=== PATIENT | female | born 1970 | race Caucasian/White ===

== ENCOUNTER 2020-05-01 17:38 | Observation (INO) | payer OTHER ==
[~2020-05-01] VITALS: Ht 160 cm; Wt 57.7 kg
--- NOTE | ~2020-05-01 | TST ---
[place] [address] TREADMILL STRESS TEST Name: MINNIE DILLON Room: [address] M.R.#: [id number] Admission: 05/01/20 Attend Phys: Brooks Gee, Discharge: 05/02/20 Date of : 68 Date of Service: 05/02/20 1349 Report #: [id number] THIS REPORT FOR: cc: [facility] - Clinic physician unknown [facility] - Clinic physician unknown Don Daniel MD [facility] ~ CC: Brooks SPRAGUE unknown DATE OF SERVICE: 05/02/2020 PROCEDURE: Standard Osmin protocol exercise stress test. INDICATION: Chest discomfort and bradycardia. Testing to evaluate for chronotropic competence. DESCRIPTION OF PROCEDURE: The patient exercised per standard Osmin protocol for a total of 6 minutes and 7 seconds. The resting blood pressure was 132/81 mmHg with a resting pulse rate of 37 beats per minute. At peak exercise, the blood pressure was 142/91 mmHg with a peak stress heart rate of 103 beats per minute. In recovery, the blood pressure was 136/84 mmHg with a recovery heart rate of 45 beats per minute. The patient had chest discomfort throughout the exercise stress test. There were no EKG changes concordant with this. The baseline 12-lead EKG shows sinus bradycardia without significant ST segment or T-wave abnormality. EKGs obtained during and post-exercise show sinus rhythm and sinus tachycardia with no significant ST segment or T-wave changes when compared to baseline. Recovery EKGs were unremarkable. FINDINGS: 1. The patient failed to achieve target heart rate, only reaching 60% of maximum predicted heart rate. 2. This stress test shows no evidence of ischemia by EKG criteria at level of stress achieved. 3. The patient had some chronotropic competence with an increase in her heart rate to 103 beats per minute with activity. By: 1349 57 Don Daniel MD, FACC /nt
[2020-05-01 17:53] VITALS: BP 101/59
[2020-05-01 17:55] LABS: ABSOLUTE BASOPHILS 0.1 thou/uL (0.0-0.2); ABSOLUTE EOSINOPHILS 0.2 thou/uL (0.0-0.7); ABSOLUTE MONOCYTES 0.6 thou/uL (0.0-1.2); ABSOLUTE NEUTROPHILS 3.8 thou/uL (1.6-8.1); BASOPHILS 1.6 %; EOSINOPHILS 2.3 %; HEMATOCRIT 37.3 % (37.0-47.0); HEMOGLOBIN 12.9 gm/dL (12.0-15.0); LYMPHOCYTES 30.5 %; MCH 29.2 pg (26.0-34.0); MCHC 34.5 g/dL (28.0-37.0); MCV 84.5 fL (80.0-100.0); MONOCYTES 8.6 %; MPV 7.7 fl. (7.2-11.1); NUCLEATED RBCS 0 /100WBC; PLATELET COUNT* 292 thou/uL (150-400); RBC 4.41 mil/uL (4.20-5.00); RDW-CV 15.9 % (10.5-14.5); WBC 6.6 thou/uL (4.0-11.0)
[2020-05-01 18:03] LABS: CALCIUM 8.7 mg/dL (8.5-10.1); POTASSIUM 3.1 mmol/L (3.5-5.1)
[2020-05-01 18:05] LABS: APTT 25.8 Seconds (25.0-31.3); INR 1.1; PROTIME 10.9 Seconds (9.20-11.50)
[2020-05-01] MEDS ORDERED: CLONAZEPAM 0.50.5 M1 PO (18:10)
[2020-05-01] MEDS ORDERED: DESYREL150 MG PO (18:10)
[2020-05-01] MEDS ORDERED: ABILIFY10 MG PO (18:11)
[2020-05-01] MEDS ORDERED: DULOXETINE HCL40 MG PO (18:11)
[2020-05-01] MEDS ORDERED: MELATONIN10 M3 PO (18:12)
[2020-05-01 18:17] LABS: ALBUMIN 3.9 g/dL (3.4-5.0); CK-MB MASS 7.6 ng/mL (<0.5-3.6); MAGNESIUM 1.8 mg/dL (1.8-2.4); TOTAL BILIRUBIN 0.4 mg/dL (<0.1-1.0); TOTAL PROTEIN 6.7 g/dL (6.4-8.2)
[2020-05-01] MEDS ORDERED: CLONAZEPAM 1 MG1 M1 PO (18:37)
[2020-05-01 21:30] VITALS: BP 152/88
[2020-05-01 21:37] LABS: URINE BILIRUBIN NEGATIVE (Negative); URINE BLOOD NEGATIVE (Negative); URINE CLARITY CLEAR; URINE COLOR YELLOW; URINE GLUCOSE-RANDOM NEGATIVE (Negative); URINE KETONES NEGATIVE (Negative); URINE LEUKOCYTES NEGATIVE (Negative); URINE NITRITE NEGATIVE (Negative); URINE PROTEIN NEGATIVE (Negative); URINE UROBILINOGEN 0.2 E.U./dl (0.2-1.0)
[2020-05-01 21:44] LABS: AMP/METHAMP Negative (Negative); BARBITURATES Negative (Negative); BENZODIAZEPINES Negative (Negative); COCAINE POSITIVE (Negative); METHADONE Negative (Negative); OPIATES Negative (Negative); PCP Negative (Negative); THC Negative (Negative)
[2020-05-01 21:46] VITALS: BP 147/94
[2020-05-02] VITALS: BP 103/72
[2020-05-02 04:00] VITALS: BP 130/90
[2020-05-02 04:54] LABS: MAGNESIUM 1.8 mg/dL (1.8-2.4)
[2020-05-02 05:05] LABS: POTASSIUM 4.7 mmol/L (3.5-5.1)
[2020-05-02 08:15] VITALS: BP 125/88
[2020-05-02 09:30] LABS: CHOLESTEROL 127 mg/dL (<200); HDL CHOLESTEROL 72 mg/dL (>40); LDL CHOLESTEROL 45 mg/dL (<100); TC:HDL 1.8 Ratio (Not establshd); TRIGLYCERIDE 50 mg/dL (<150); VLDL 10 mg/dL (<40)
[2020-05-02 09:31] LABS: SERUM ASSESSMENT Clear
--- NOTE | 2020-05-02 11:59 | 2DMMODE ---
[place] [address] 2 D/M-MODE ECHOCARDIOGRAM Name: MINNIE DILLON Room: [address] M.R.#: [id number] Admission: 05/01/20 Attend Phys: Brooks Gee, Discharge: Date of : 68 Date of Service: 05/02/20 1159 Report #: [id number] THIS REPORT FOR: cc: [facility] - Clinic physician unknown [facility] - Clinic physician unknown Don Daniel MD [facility] ~ APPROVED REPORT Study performed: 05/02/2020 09:38:05 EXAM: Comprehensive 2D, Doppler, and color-flow Echocardiogram Patient Location: Bedside BSA: 1.58 HR: 41 bpm BP: 125/88 mmHg Other Information Study Quality: Adequate Indications Bradycardia Chest Pain 2D Dimensions IVSd: 10.49 (7-11mm) LVOT Diam: 20.31 (18-24mm) LVDd: 41.00 mm PWd: 8.98 (7-11mm) Ascending Ao: 37.06 (22-36mm) LVDs: 30.78 (25-40mm) Aortic Root: 33.02 mm Volumes Left Atrial Volume (Systole) LA ESV Index: 30.70 mL/m2 Aortic Valve AoV Peak Ren.: 0.89 m/s AO Peak Gr.: 3.20 mmHg LVOT Max P.52 mmHg AO Mean Gr.: 1.75 mmHg LVOT Mean P.61 mmHg LVOT Max V: 0.62 m/s AO V2 VTI: 20.64 cm LVOT Mean V: 0.35 m/s SANDRA (VTI): 1.69 cm2 LVOT V1 VTI: 10.75 [place] [address] 2 D/M-MODE ECHOCARDIOGRAM Name: MINNIE DILLON Room: [address] M.R.#: [id number] Admission: 05/01/20 Attend Phys: Brooks Gee, Discharge: Date of : 68 Date of Service: 05/02/20 1159 Report #: [id number] E/A Ratio: 0.67 MV Decel. Time: 161.49 ms MV E Max Ren.: 0.38 m/s MV PHT: 46.83 ms MVA (PHT): 4.70 cm2 TDI E/Lateral E': 3.80 E/Medial E': 4.22 Medial E' Ren.: 0.09 m/s Lateral E' Ren.: 0.10 m/s Pulmonary Valve PV Peak Ren.: 0.59 m/s PV Peak Gr.: 1.39 mmHg Tricuspid Valve RAP Estimate: 20.00 mmHg TR Peak Gr.: 37.05 mmHg RVSP: 57.05 mmHg PA Pressure: 57.05 mmHg Left Ventricle The left ventricle is normal size. There is normal LV segmental wall motion. There is normal left ventricular wall thickness. Left ventricular systolic function is normal. LVEF is 60-65%. The left ventricular diastolic function is normal. Right Ventricle The right ventricle is normal size. The right ventricular systolic function is normal. Atria The left atrium size is normal. The right atrium size is normal. Aortic Valve The aortic valve is normal in structure. No aortic regurgitation is present. There is no aortic valvular stenosis. Mitral Valve The mitral valve is normal in structure. Trace mitral regurgitation. No evidence of mitral valve stenosis. Tricuspid Valve The tricuspid valve is normal in structure. Mild tricuspid regurgitation. The RVSP is 50-55 [place] [address] 2 D/M-MODE ECHOCARDIOGRAM Name: MINNIE DILLON Room: [address]#: [id number] Admission: 05/01/20 Attend Phys: Brooks Gee, Discharge: Date of : 68 Date of Service: 05/02/20 1159 Report #: [id number] The pulmonary valve is normal in structure. Trace pulmonic regurgitation. Great Vessels The aortic root is normal in size. IVC is dilated. Pericardium There is no pericardial effusion. <Conclusion> The left ventricle is normal size. There is normal left ventricular wall thickness. Left ventricular systolic function is normal. LVEF is 60-65%. The left ventricular diastolic function is normal. Trace mitral regurgitation. Mild tricuspid regurgitation. The RVSP is 50-55 mmHg. IVC is dilated. <ELECTRONICALLY SIGNED> By: Don Daniel MD, FACC 05/02/20 1159 1159 1159 Don Daniel MD, FACC /INF
--- NOTE | 2020-05-02 13:39 | EKG ---
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: CASE : 1970 Requested By: Arias Cornejo Order Number: [id number] Nohelia MD: Don Daniel Measurements Intervals [place] Rate: 49 P: 51 [place]: 139 QRS: 17 QRSD: 83 T: 22 QT: 449 QTc: 406 Interpretive Statements Sinus bradycardia Borderline low voltage, extremity leads Baseline wander in lead(s) II,III,aVR,aVF Compared to ECG 05/01/2020 17:54:59 Sinus rhythm no longer present Electronically Signed On 05-02-2020 13:39:30 CDT by Don Daniel [email or web address] <ELECTRONICALLY SIGNED> By: Don Daniel MD, FACC 05/02/20 1339 13 13 Don Daniel MD, FACC /EPI
--- NOTE | 2020-05-02 13:39 | EKG ---
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: KALYAN : 1970 Requested By: Geoff Burciaga Order Number: [id number] MD: Don Daniel Measurements Intervals [place] Rate: 87 P: 71 [place]: 141 QRS: 29 QRSD: 87 T: 27 QT: 437 QTc: 526 Interpretive Statements Sinus rhythm Ventricular premature complex Low voltage, extremity leads Prolonged QT interval Compared to ECG 11/13/2005 23:57:41 Ventricular premature complex(es) now present Low QRS voltage now present Prolonged QT interval now present Electronically Signed On 05-02-2020 13:39:16 CDT by Don Daniel [email or web address] <ELECTRONICALLY SIGNED> By: Don Daniel MD, FACC 05/02/20 1339 1746 1746 Don Daniel MD, [facility] /EPI
--- NOTE | 2020-05-02 13:39 | EKG ---
[place] [address] ELECTROCARDIOGRAM REPORT Name: MINNIE DILLON Room: [address] M.R.#: [id number] Admission: 05/01/20 Attend Phys: Brooks Gee, Discharge: Date of : 68 Date of Service: 05/01/20 1754 Report #: [id number] THIS REPORT FOR: //name// 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 : 1970 Requested By: Valerie Lugo Order Number: [id number] MD: Don Daniel Measurements Intervals [place] Rate: 74 P: 58 [place]: 136 QRS: 42 QRSD: 87 T: 50 QT: 403 QTc: 448 Interpretive Statements Sinus rhythm Borderline low voltage, extremity leads Compared to ECG 05/01/2020 17:46:42 Ventricular premature complex(es) no longer present Prolonged QT interval no longer present Electronically Signed On 05-02-2020 13:39:28 CDT by Don Daniel [email or web address] <ELECTRONICALLY SIGNED> By: Don Daniel MD, FACC 05/02/20 1339 1754 1754 Don Daniel MD, FACC /EPI
[2020-05-02 16:03] VITALS: BP 125/88
[2020-05-02 17:34] VITALS: BP 125/88
== END 2020-05-02 17:49 | disposition home or self-care (01) ==
LOC: M.ERS 17:38 → M.2W 20:28 → M.TBA-ER 20:28 → M.2W 21:17
PROVIDERS: Family Medicine; Internal Medicine; ADMIT Internal Medicine; ATTEND Internal Medicine
DX: R07.89 Other chest pain (principal); G43.909 Migraine, unspecified, not intractable, without status migrainosus; F41.1 Generalized anxiety disorder; F32.9 Major depressive disorder, single episode, unspecified; I48.91 Unspecified atrial fibrillation; E87.6 Hypokalemia; K44.9 Diaphragmatic hernia without obstruction or gangrene; K21.9 Gastro-esophageal reflux disease without esophagitis; F14.20 Cocaine dependence, uncomplicated; F17.210 Nicotine dependence, cigarettes, uncomplicated; R00.1 Bradycardia, unspecified; Z79.899 Other long term (current) drug therapy; Z20.828 Contact with and (suspected) exposure to other viral communicable diseases

== ENCOUNTER 2020-05-24 11:16 | Emergency (ER) | payer OTHER ==
[~2020-05-24] VITALS: Ht 160 cm; Wt 52.2 kg
[~2020-05-24 11:16] MED LIST: ABILIFY10 MG PO; CLONAZEPAM 0.50.5 M1 PO; CLONAZEPAM 1 MG1 M1 PO; DESYREL150 MG PO; DULOXETINE HCL40 MG PO; MELATONIN10 M3 PO
[2020-05-24 11:35] LABS: ABSOLUTE BASOPHILS 0.1 thou/uL (0.0-0.2); ABSOLUTE EOSINOPHILS 0.3 thou/uL (0.0-0.7); ABSOLUTE LYMPHOCYTES 1.9 thou/uL (0.8-5.3); ABSOLUTE MONOCYTES 0.4 thou/uL (0.0-1.2); ABSOLUTE NEUTROPHILS 1.6 thou/uL (1.6-8.1); BASOPHILS 2.7 %; EOSINOPHILS 6.3 %; HEMATOCRIT 40.6 % (37.0-47.0); HEMOGLOBIN 13.2 gm/dL (12.0-15.0); LYMPHOCYTES 44.5 %; MCH 27.7 pg (26.0-34.0); MCHC 32.6 g/dL (28.0-37.0); MCV 84.9 fL (80.0-100.0); MONOCYTES 8.5 %; MPV 7.8 fl. (7.2-11.1); NUCLEATED RBCS 0 /100WBC; PLATELET COUNT* 269 thou/uL (150-400); RBC 4.79 mil/uL (4.20-5.00); RDW-CV 15.6 % (10.5-14.5); WBC 4.2 thou/uL (4.0-11.0)
[2020-05-24 11:46] LABS: CALCIUM 9.1 mg/dL (8.5-10.1); CREATININE 0.9 mg/dL (0.6-1.3); POTASSIUM 3.6 mmol/L (3.5-5.1)
[2020-05-24 11:56] LABS: MAGNESIUM 1.9 mg/dL (1.8-2.4); TOTAL BILIRUBIN 0.3 mg/dL (<0.1-1.0)
[2020-05-24] MEDS ORDERED: FLEXERIL PO (13:25)
[2020-05-24 13:48] VITALS: BP 112/76
--- NOTE | 2020-05-24 15:30 | EKG ---
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
--- NOTE | 2020-05-24 15:30 | EKG ---
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1970 Requested By: Arias Cornejo Order Number: [id number] MD: Chris Ghosh Measurements Intervals [place] Rate: 53 P: 45 [place]: 131 QRS: 55 QRSD: 90 T: 48 QT: 431 QTc: 405 Interpretive Statements Sinus bradycardia Low voltage, extremity leads Baseline wander in lead(s) II,III,aVF Compared to ECG 05/24/2020 11:20:19 rate has slowed Electronically Signed On 05-24-2020 15:30:45 CDT by Chris Ghosh [email or web address] <ELECTRONICALLY SIGNED> By: Chris Ghosh MD, FACC 05/24/20 1530 1327 1327 Chris Ghosh MD, [facility] /EPI
== END 2020-05-24 13:49 | disposition home or self-care (01) ==
LOC: M.ERS 11:16
PROVIDERS: Emergency Medicine Emergency Medical Services
DX: R07.89 Other chest pain (principal); I48.91 Unspecified atrial fibrillation; G43.909 Migraine, unspecified, not intractable, without status migrainosus; F17.210 Nicotine dependence, cigarettes, uncomplicated; Z88.6 Allergy status to analgesic agent; Z90.89 Acquired absence of other organs

== ENCOUNTER → 2020-06-13 | Outpatient (CLI) | payer OTHER ==
[~2020-06-13] VITALS: Ht 160 cm; Wt 50.8 kg
[2020-06-13] VITALS (7 sets, daily range): BP systolic 105–130; BP diastolic 70–91
[~2020-06-13] MED LIST changes: +FLEXERIL PO
[2020-06-13 12:39] LABS: HEMATOCRIT 39.7 % (37.0-47.0); HEMOGLOBIN 13.2 gm/dL (12.0-15.0); MCH 28.2 pg (26.0-34.0); MCHC 33.2 g/dL (28.0-37.0); MCV 84.9 fL (80.0-100.0); MPV 8.1 fl. (7.2-11.1); RBC 4.68 mil/uL (4.20-5.00); RDW-CV 15.1 % (10.5-14.5); WBC 4.6 thou/uL (4.0-11.0)
[2020-06-13 12:49] LABS: APTT 25.1 Seconds (25.0-31.3); PROTIME 11.1 Seconds (9.20-11.50)
[2020-06-13 13:02] LABS: CALCIUM 9.1 mg/dL (8.5-10.1); CREATININE 0.9 mg/dL (0.6-1.3)
[2020-06-13 13:06] LABS: ALBUMIN 3.8 g/dL (3.4-5.0); TOTAL BILIRUBIN 0.4 mg/dL (<0.1-1.0); TOTAL PROTEIN 6.9 g/dL (6.4-8.2)
--- NOTE | 2020-06-15 18:57 | CARD ---
[address] [address] CARDIAC CATH REPORT Name: MINNIE DILLON Room: [facility]#: [id number] Admission: 06/13/20 Attend Phys: Don Daniel MD Discharge: Date of : 68 Report #: [id number] THIS REPORT FOR: //name// cc: Aranza Ansari MD, Ghazal A. MD ~ APPROVED REPORT Study performed: 06/13/2020 13:21:18 Patient Status: Out-Patient Room #: Event Personnel: Don Daniel Bark Grinder, Arlette Dean RN Cash Van Salesperson, Zach Owen VISUAL MERCHANDISING ASSISTANT Monitor, Ave Davies RTR Scrub Exam: Insertion of Dual Chamber Permanent Pacemaker Indications: Symptomatic sinus bradycardia The patient is a 50 year-old female with a history of Symptomatic sinus bradycardia. Conscious Sedation Start time: 13:58 End Time: 14:39 Fentanyl 200 mcg Versed 7 mg Implanted Devices: Biotronik ventricular lead. Model: Solia S 53. Serial: [id number]. Biotronik atrial lead. Model: Solia S 45. Serial: [id number]. Biotronik Dual Chamber Pacemaker. Model: Tracie 8 FRANKLIN. Serial: [id number]. Procedure The patient underwent informed consent. We discussed the details of the procedure including the risks, which include, but not limited to bleeding, infection, vascular damage, cardiac perforation, and pneumothorax. She understood these risks and was willing to proceed. As such, she was brought to the EP/Cardiac Catheterization laboratory in a fasting and sedated state and prepped and draped in a sterile fashion, received IV antibiotics prior to initiation of the procedure and a venogram was performed showing patency of the right axillary vein. The patient underwent conscious sedation, with no related complications. The patient was brought to the EP/Cardiac Catheterization laboratory and the right chest and shoulder were prepped and draped in a sterile manner. During this case, Fluoroscopy and visipaque 20cc [place] [address] CARDIAC CATH REPORT Name: MINNIE DILLON Room: [facility]#: [id number] Admission: 06/13/20 Attend Phys: Don Daniel MD Discharge: Date of : 68 Report #: [id number] imaging. The right subclavian region was infiltrated with 2% Lidocaine with Epinephrine subcutaneous anesthesia. A transverse incision was made in the right upper chest cavity. The subcutaneous pocket was formed via blunt dissection. Percutaneous venous access was achieved and an introducer sheath was inserted into the right Subclavian vein. Utilizing fluoroscopic guidance, the atrial and ventricular lead wires were advanced over the wires and positioned in the right atria and right ventricle respectively. Capturing and sensing thresholds were verified. Electrode Parameters P Wave: 4.0 mV R Wave: 10.0 mV Atrial Threshold: 0.40 V at 0.40 ms Ventricular Threshold: 0.50 V at 0.40 ms Atrial Resistance: 670 ohms Ventricular Resistance: 800 ohms Dual Chamber The atrial and ventricular leads were then secured using 0 silk sutures. The subcutaneous pocket was irrigated with Ancef 1 gram antibiotic solution.The atrial and ventricular leads were attached to the appropriate receptacles on the pulse generator and set screws firmly tightened to insure adequate contact and stability. The lead and pulse generator were placed into the subcutaneous pocket. Sharp and sponge counts were confirmed to be correct. At this time the pocket was closed subcutaneously with a 2.0 Vicryl and the skin was closed with a 4.0 Vicryl. The operative site was dressed in sterile fashion with benzoin spray, steri strips, telfa, tegaderm and the patient was transferred to the floor in stable condition. Complications The patient tolerated the procedure well and there were no complications associated with the procedure. Findings Specimens Removed: No Estimated Blood Loss: less than 5 ml Conclusion 1. Symptomatic sinus bradycardia. 2. Chronotropic incompetence. 3. Successful placement of a dual-chamber pacemaker [place] [address] CARDIAC CATH REPORT Name: MINNIE DILLON Room: [facility]#: [id number] Admission: 06/13/20 Attend Phys: Don Daniel MD Discharge: Date of : 68 Report #: [id number] ventricular lead placement. Recommendations 1. Follow-up site check in 1 week. 2. Follow-up device interrogation in 1 to 2 months. <ELECTRONICALLY SIGNED> By: Don Daniel MD, FACC 06/15/201855 55 55Michael Juan Daniel MD, FACC /INF
== END | disposition home or self-care (01) ==
LOC: M.CL 11:24
PROVIDERS: ATTEND Internal Medicine Cardiovascular Disease
DX: I49.5 Sick sinus syndrome (principal); R53.83 Other fatigue; F41.9 Anxiety disorder, unspecified; F32.9 Major depressive disorder, single episode, unspecified; I48.91 Unspecified atrial fibrillation; G43.909 Migraine, unspecified, not intractable, without status migrainosus; F17.210 Nicotine dependence, cigarettes, uncomplicated; Z72.89 Other problems related to lifestyle; Z79.899 Other long term (current) drug therapy; Z98.890 Other specified postprocedural states; Z82.49 Family history of ischemic heart disease and other diseases of the circulatory system; Z88.8 Allergy status to other drugs, medicaments and biological substances

== ENCOUNTER 2020-10-05 11:19 | Inpatient (IN) | payer OTHER ==
[~2020-10-05] VITALS: Ht 160 cm; Wt 54.4 kg
[2020-10-05] VITALS (10 sets, daily range): BP systolic 84–112; BP diastolic 58–89
[2020-10-05] MEDS ORDERED: DRIZALMA SPRINK30 MG PO (11:30)
[2020-10-05] MEDS ORDERED: MINIPRESS2 MG PO (11:30)
[2020-10-05] MEDS ORDERED: FLUOXETINE HCL40 MG PO (11:31)
[2020-10-05] MEDS ORDERED: OMEPRAZOLE 20 M20 M1 PO (11:32)
[2020-10-05 11:41] LABS: ABSOLUTE MONOCYTES 0.8 thou/uL (0.0-1.2); ABSOLUTE NEUTROPHILS 6.3 thou/uL (1.6-8.1); BASOPHILS 0.6 %; EOSINOPHILS 0.2 %; HEMATOCRIT 45.5 % (37.0-47.0); HEMOGLOBIN 15.1 gm/dL (12.0-15.0); LYMPHOCYTES 12.4 %; MCH 29.5 pg (26.0-34.0); MCHC 33.1 g/dL (28.0-37.0); MCV 89.1 fL (80.0-100.0); MONOCYTES 9.6 %; MPV 8.2 fl. (7.2-11.1); NUCLEATED RBCS 0 /100WBC; PLATELET COUNT* 228 thou/uL (150-400); POLYS 77.2 %; RBC 5.11 mil/uL (4.20-5.00); RDW-CV 13.1 % (10.5-14.5); WBC 8.2 thou/uL (4.0-11.0)
[2020-10-05 11:49] LABS: CALCIUM 10.3 mg/dL (8.5-10.1); CREATININE 1.1 mg/dL (0.6-1.3); POTASSIUM 3.7 mmol/L (3.5-5.1)
[2020-10-05 11:54] LABS: ALBUMIN 4.2 g/dL (3.4-5.0); TOTAL BILIRUBIN 0.9 mg/dL (<0.1-1.0); TOTAL PROTEIN 7.4 g/dL (6.4-8.2)
[2020-10-05 12:04] LABS: ACETAMINOPHEN < 2 ug/mL (10-30); ALCOHOL < 10 mg/dL (<10); SALICYLATE < 2.8 mg/dL (2.8-20.0)
--- NOTE | 2020-10-05 16:27 | EKG ---
[place] [address] ELECTROCARDIOGRAM REPORT Name: MINNIE DILLON Room: [address] ADM IN M.R.#: [id number] Admission: 10/05/20 Attend Phys: Brooks Gee, Discharge: Date of : 68 Date of Service: 10/05/20 1144 Report #: [id number] THIS REPORT FOR: //name// [facility] ED Test Date: 2020-10-05 Test Time: 11:44:39 Pat Name: MINNIE DILLON Department: Room: [facility] Gender: F Parts Picker: KEVIN : 1970 Requested By: Wayne Polanco Order Number: [id number] MD: Chris Ghosh Measurements Intervals [place] Rate: 74 P: 81 [place]: 138 QRS: 61 QRSD: 89 T: 67 QT: 380 QTc: 422 Interpretive Statements Sinus rhythm nonspecific ST segment changes Low voltage, extremity leads Compared to ECG 05/24/2020 13:27:53 Sinus bradycardia no longer present Electronically Signed On 10-05-2020 16:27:19 RIVET TOSSER by Chris Ghosh [email or web address] <ELECTRONICALLY SIGNED> By: Chris Ghosh MD, [facility] 10/05/20 1627 1144 1144 Chris Ghosh MD, [facility] /EPI
[2020-10-06] VITALS (14 sets, daily range): BP systolic 73–108; BP diastolic 43–82
[2020-10-06 07:01] LABS: ABSOLUTE BASOPHILS 0.1 thou/uL (0.0-0.2); ABSOLUTE LYMPHOCYTES 1.8 thou/uL (0.8-5.3); ABSOLUTE MONOCYTES 0.7 thou/uL (0.0-1.2); ABSOLUTE NEUTROPHILS 3.7 thou/uL (1.6-8.1); BASOPHILS 0.9 %; EOSINOPHILS 0.7 %; HEMATOCRIT 34.6 % (37.0-47.0); HEMOGLOBIN 11.5 gm/dL (12.0-15.0); LYMPHOCYTES 28.4 %; MCH 29.7 pg (26.0-34.0); MCHC 33.4 g/dL (28.0-37.0); MCV 89.1 fL (80.0-100.0); MONOCYTES 11.1 %; NUCLEATED RBCS 0 /100WBC; PLATELET COUNT* 166 thou/uL (150-400); POLYS 58.9 %; RBC 3.88 mil/uL (4.20-5.00); RDW-CV 13.5 % (10.5-14.5); WBC 6.3 thou/uL (4.0-11.0)
[2020-10-06 07:24] LABS: CREATININE 0.8 mg/dL (0.6-1.3); POTASSIUM 3.6 mmol/L (3.5-5.1)
[2020-10-06 07:25] LABS: CALCIUM 7.8 mg/dL (8.5-10.1)
[2020-10-06 11:36] LABS: AMP/METHAMP Negative (Negative); BARBITURATES Negative (Negative); BENZODIAZEPINES POSITIVE (Negative); COCAINE POSITIVE (Negative); METHADONE Negative (Negative); OPIATES POSITIVE (Negative); PCP POSITIVE (Negative); THC Negative (Negative)
[2020-10-07 04:26] VITALS: BP 128/41
[2020-10-07 04:39] LABS: HEMATOCRIT 33.7 % (37.0-47.0); HEMOGLOBIN 11.3 gm/dL (12.0-15.0); MCH 29.7 pg (26.0-34.0); MCHC 33.4 g/dL (28.0-37.0); MCV 88.9 fL (80.0-100.0); MPV 8.7 fl. (7.2-11.1); RBC 3.79 mil/uL (4.20-5.00); RDW-CV 13.4 % (10.5-14.5); WBC 5.5 thou/uL (4.0-11.0)
[2020-10-07 05:21] LABS: ALBUMIN 2.3 g/dL (3.4-5.0); CALCIUM 8.2 mg/dL (8.5-10.1); CREATININE 0.7 mg/dL (0.6-1.3); MAGNESIUM 1.6 mg/dL (1.8-2.4); POTASSIUM 3.8 mmol/L (3.5-5.1); TOTAL BILIRUBIN 0.2 mg/dL (<0.1-1.0); TOTAL PROTEIN 4.6 g/dL (6.4-8.2)
[2020-10-07 09:00] VITALS: BP 95/67
[2020-10-07] MEDS ORDERED: PAIN RELIEVER500 MG PO (09:13)
[2020-10-07] MEDS ORDERED: IBUPROFEN 600600 M1 PO (09:13)
== END 2020-10-07 15:50 | DRG 917 ==
LOC: M.ERS 11:19 → M.ICU 12:34 → M.2W 12:34 → M.TBA-ER 12:34 → M.ICU 15:44 → M.2W 10-06 11:38
PROVIDERS: Emergency Medicine; Internal Medicine; ADMIT Internal Medicine; ATTEND Internal Medicine
DX: T43.212A Poisoning by selective serotonin and norepinephrine reuptake inhibitors, intentional self-harm, initial encounter (principal); G92 Toxic encephalopathy; M62.82 Rhabdomyolysis; I95.9 Hypotension, unspecified; E86.0 Dehydration; F41.8 Other specified anxiety disorders; R74.01 Elevation of levels of liver transaminase levels; E83.52 Hypercalcemia; F32.9 Major depressive disorder, single episode, unspecified; F19.10 Other psychoactive substance abuse, uncomplicated; F41.9 Anxiety disorder, unspecified; G43.909 Migraine, unspecified, not intractable, without status migrainosus; Z20.822 Contact with and (suspected) exposure to COVID-19; Z79.899 Other long term (current) drug therapy; Z88.8 Allergy status to other drugs, medicaments and biological substances; Y92.89 Other specified places as the place of occurrence of the external cause

== ENCOUNTER 2021-01-23 00:01 | Emergency (ER) | payer OTHER ==
[~2021-01-23] VITALS: Ht 160 cm; Wt 56.7 kg
[~2021-01-23 00:01] MED LIST changes: +DRIZALMA SPRINK30 MG PO; +FLUOXETINE HCL40 MG PO; +IBUPROFEN 600600 M1 PO; +MINIPRESS2 MG PO; +OMEPRAZOLE 20 M20 M1 PO; +PAIN RELIEVER500 MG PO
[2021-01-23] MEDS ORDERED: KLONOPIN0.5 MG PO (00:17)
[2021-01-23] MEDS ORDERED: BACLOFEN 10MG T10 MG PO (00:18)
[2021-01-23 00:47] LABS: URINE BILIRUBIN NEGATIVE (Negative); URINE BLOOD NEGATIVE (Negative); URINE CLARITY CLEAR; URINE COLOR YELLOW; URINE GLUCOSE-RANDOM NEGATIVE (Negative); URINE KETONES NEGATIVE (Negative); URINE LEUKOCYTES NEGATIVE (Negative); URINE NITRITE NEGATIVE (Negative); URINE PROTEIN NEGATIVE (Negative); URINE SPECIFIC GRAVITY 1.025 (1.005-1.030); URINE UROBILINOGEN 0.2 E.U./dl (0.2-1.0)
[2021-01-23 00:50] LABS: HEMATOCRIT 37.8 % (37.0-47.0); HEMOGLOBIN 12.6 gm/dL (12.0-15.0); MCHC 33.4 g/dL (28.0-37.0); MCV 86.8 fL (80.0-100.0); MPV 7.8 fl. (7.2-11.1); RBC 4.35 mil/uL (4.20-5.00); RDW-CV 14.2 % (10.5-14.5); WBC 4.9 thou/uL (4.0-11.0)
[2021-01-23 00:52] LABS: CREATININE 0.7 mg/dL (0.6-1.3); POTASSIUM 3.8 mmol/L (3.5-5.1)
[2021-01-23 00:53] LABS: AMP/METHAMP Negative (Negative); BARBITURATES Negative (Negative); BENZODIAZEPINES Negative (Negative); COCAINE Negative (Negative); METHADONE Negative (Negative); OPIATES Negative (Negative); PCP Negative (Negative); THC Negative (Negative)
[2021-01-23 00:57] LABS: ACETAMINOPHEN < 2 ug/mL (10-30); ALBUMIN 3.7 g/dL (3.4-5.0); ALCOHOL < 10 mg/dL (<10); SALICYLATE < 2.8 mg/dL (2.8-20.0); TOTAL BILIRUBIN 0.2 mg/dL (<0.1-1.0); TOTAL PROTEIN 6.8 g/dL (6.4-8.2)
[2021-01-23] MEDS ORDERED: CARAFATE 1 GM TA1 GM PO (03:48)
[2021-01-23] MEDS ORDERED: ACETAMINOPHEN-1 EAC2 PO (03:48)
[2021-01-23 04:23] VITALS: BP 109/72
--- NOTE | 2021-01-23 11:10 | EKG ---
[place] [address] ELECTROCARDIOGRAM REPORT Name: MINNIE DILLON Room: 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: : 1970 Requested By: Shabnam Moscoso Order Number: [id number] MD: Panchito Lainez Measurements Intervals [place] Rate: 67 P: 29 [place]: 138 QRS: 9 QRSD: 85 T: 22 QT: 400 QTc: 423 Interpretive Statements Sinus rhythm Low voltage, precordial leads Compared to ECG 10/05/2020 11:44:39 No significant changes Electronically Signed On 01-23-2021 11:10:10 CDT by Panchito Lainez [email or web address] <ELECTRONICALLY SIGNED> By: Panchito Lainez MD, [facility] 01/23/21 1110 0040 0040 Panchito Lainez MD, [facility] /EPI
== END 2021-01-23 04:24 | disposition home or self-care (01) ==
LOC: M.ERS 00:01
PROVIDERS: Personal Emergency Response Attendant
DX: K29.70 Gastritis, unspecified, without bleeding (principal); K20.90 Esophagitis, unspecified without bleeding; I48.91 Unspecified atrial fibrillation; F17.210 Nicotine dependence, cigarettes, uncomplicated; Z88.6 Allergy status to analgesic agent; Z79.899 Other long term (current) drug therapy

== ENCOUNTER 2021-01-27 12:02 | Emergency (ER) | payer OTHER ==
[~2021-01-27] VITALS: Ht 160 cm; Wt 56.7 kg
[~2021-01-27 12:02] MED LIST changes: +ACETAMINOPHEN-1 EAC2 PO; +BACLOFEN 10MG T10 MG PO; +CARAFATE 1 GM TA1 GM PO; +KLONOPIN0.5 MG PO
[2021-01-27 12:36] LABS: ABSOLUTE BASOPHILS 0.1 thou/uL (0.0-0.2); ABSOLUTE LYMPHOCYTES 1.2 thou/uL (0.8-5.3); ABSOLUTE MONOCYTES 0.5 thou/uL (0.0-1.2); ABSOLUTE NEUTROPHILS 4.8 thou/uL (1.6-8.1); BASOPHILS 0.8 %; EOSINOPHILS 0.3 %; HEMATOCRIT 36.6 % (37.0-47.0); HEMOGLOBIN 12.4 gm/dL (12.0-15.0); LYMPHOCYTES 18.6 %; MCHC 33.8 g/dL (28.0-37.0); MCV 85.8 fL (80.0-100.0); MONOCYTES 7.3 %; MPV 7.4 fl. (7.2-11.1); NUCLEATED RBCS 0 /100WBC; PLATELET COUNT* 280 thou/uL (150-400); RBC 4.27 mil/uL (4.20-5.00); RDW-CV 14.5 % (10.5-14.5); WBC 6.6 thou/uL (4.0-11.0)
[2021-01-27 13:06] LABS: CALCIUM 9.1 mg/dL (8.5-10.1); CREATININE 0.6 mg/dL (0.6-1.3); POTASSIUM 3.9 mmol/L (3.5-5.1)
[2021-01-27 13:11] LABS: ALBUMIN 4.2 g/dL (3.4-5.0); TOTAL BILIRUBIN 0.3 mg/dL (<0.1-1.0); TOTAL PROTEIN 7.3 g/dL (6.4-8.2)
[2021-01-27] MEDS ORDERED: ZOFRAN ODT4 MG PO (14:16)
[2021-01-27] MEDS ORDERED: PROTONIX40 M4 PO (14:16)
[2021-01-27] MEDS ORDERED: NORCO5 PO (14:19)
[2021-01-27 14:45] VITALS: BP 131/102
--- NOTE | 2021-01-28 12:01 | EKG ---
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 Clayton Mccullough MD, [facility] /EPI
== END 2021-01-27 14:45 | disposition home or self-care (01) ==
LOC: M.ERS 12:02
PROVIDERS: Nurse Practitioner Family
DX: K29.70 Gastritis, unspecified, without bleeding (principal); K44.9 Diaphragmatic hernia without obstruction or gangrene; D18.09 Hemangioma of other sites; I48.91 Unspecified atrial fibrillation; Z88.6 Allergy status to analgesic agent

== ENCOUNTER → 2021-03-07 | Day surgery (SDC) | payer OTHER ==
[~2021-03-07] MED LIST changes: +ABILIFY15 MG PO; +NORCO5 PO; +PROTONIX40 M4 PO; +TRAZODONE HCL100 MG PO; +ZOFRAN ODT4 MG PO
--- NOTE | ~2021-03-07 | PROC ---
[address] [address] PROCEDURE REPORT Name: MINNIE DILLON Room: [facility]#: [id number] Admission: 03/07/21 Attend Phys: Alexis Martinez DO Discharge: Date of : 68 Report #: [id number] THIS REPORT FOR: cc: Aranza Ansari MD, Ghazal A. MD [facility],Medical Records Staff ~ For GI report, please see the Provation report in Perceptive 7 content. By: 1500Medical Records Staff NATALYA /JENNIFER
== END | disposition home or self-care (01) ==
LOC: M.SUR 06:23
PROVIDERS: ATTEND Internal Medicine Gastroenterology
DX: R10.84 Generalized abdominal pain (principal); K59.00 Constipation, unspecified; R19.7 Diarrhea, unspecified; K57.30 Diverticulosis of large intestine without perforation or abscess without bleeding; K64.4 Residual hemorrhoidal skin tags; R12 Heartburn; K44.9 Diaphragmatic hernia without obstruction or gangrene; K21.9 Gastro-esophageal reflux disease without esophagitis; R11.2 Nausea with vomiting, unspecified; Z20.822 Contact with and (suspected) exposure to COVID-19; Z98.890 Other specified postprocedural states; Z79.899 Other long term (current) drug therapy; Z88.8 Allergy status to other drugs, medicaments and biological substances

== ENCOUNTER → 2021-03-15 | Outpatient (CLI) | payer OTHER | LOC: M.ULTRA 09:00 | PROVIDERS: ATTEND Internal Medicine Gastroenterology | DX: K76.0 Fatty (change of) liver, not elsewhere classified (principal); K83.9 Disease of biliary tract, unspecified; R10.9 Unspecified abdominal pain ==

== ENCOUNTER → 2021-04-16 | Outpatient (CLI) | payer OTHER | LOC: M.NUC 03-26 07:45 | PROVIDERS: ATTEND Internal Medicine Gastroenterology | DX: R10.9 Unspecified abdominal pain (principal) ==

== ENCOUNTER 2021-04-29 04:44 | Emergency (ER) | payer OTHER ==
[~2021-04-29] VITALS: Ht 160 cm; Wt 49.9 kg
[2021-04-29] MEDS ORDERED: PROZAC20 M1 PO (04:57)
[2021-04-29 05:28] LABS: ABSOLUTE BASOPHILS 0.1 thou/uL (0.0-0.2); ABSOLUTE EOSINOPHILS 0.1 thou/uL (0.0-0.7); ABSOLUTE LYMPHOCYTES 2.6 thou/uL (0.8-5.3); ABSOLUTE MONOCYTES 0.4 thou/uL (0.0-1.2); ABSOLUTE NEUTROPHILS 1.9 thou/uL (1.6-8.1); BASOPHILS 1.5 %; EOSINOPHILS 2.7 %; HEMATOCRIT 43.7 % (37.0-47.0); HEMOGLOBIN 14.6 gm/dL (12.0-15.0); LYMPHOCYTES 51.3 %; MCH 29.2 pg (26.0-34.0); MCHC 33.4 g/dL (28.0-37.0); MCV 87.3 fL (80.0-100.0); MONOCYTES 7.7 %; MPV 7.8 fl. (7.2-11.1); NUCLEATED RBCS 0 /100WBC; PLATELET COUNT* 287 thou/uL (150-400); POLYS 36.8 %; WBC 5.1 thou/uL (4.0-11.0)
[2021-04-29 05:40] LABS: CALCIUM 9.3 mg/dL (8.5-10.1); CREATININE 0.8 mg/dL (0.6-1.3); POTASSIUM 3.5 mmol/L (3.5-5.1)
[2021-04-29 05:45] LABS: ALBUMIN 4.7 g/dL (3.4-5.0); TOTAL BILIRUBIN 0.3 mg/dL (<0.1-1.0); TOTAL PROTEIN 7.6 g/dL (6.4-8.2)
[2021-04-29 06:26] LABS: ALCOHOL 231 mg/dL (<10); SALICYLATE 3.3 mg/dL (2.8-20.0)
[2021-04-29 06:31] LABS: ACETAMINOPHEN < 2 ug/mL (10-30)
[2021-04-29 10:36] LABS: URINE BILIRUBIN NEGATIVE (Negative); URINE BLOOD NEGATIVE (Negative); URINE CLARITY CLEAR; URINE COLOR YELLOW; URINE GLUCOSE-RANDOM NEGATIVE (Negative); URINE KETONES NEGATIVE (Negative); URINE LEUKOCYTES-REFLEX NEGATIVE (Negative); URINE NITRITE-REFLEX NEGATIVE (Negative); URINE PROTEIN NEGATIVE (Negative); URINE UROBILINOGEN 0.2 E.U./dl (0.2-1.0)
[2021-04-29 10:45] LABS: AMP/METHAMP Negative (Negative); BARBITURATES Negative (Negative); BENZODIAZEPINES Negative (Negative); COCAINE POSITIVE (Negative); METHADONE Negative (Negative); OPIATES Negative (Negative); PCP Negative (Negative); THC Negative (Negative)
[2021-04-29 12:07] VITALS: BP 115/51
== END 2021-04-29 12:07 | disposition home or self-care (01) ==
LOC: M.ERS 04:44
PROVIDERS: Emergency Medicine
DX: S61.512A Laceration without foreign body of left wrist, initial encounter (principal); Z20.822 Contact with and (suspected) exposure to COVID-19; F32.9 Major depressive disorder, single episode, unspecified; F10.129 Alcohol abuse with intoxication, unspecified; W01.198A Fall on same level from slipping, tripping and stumbling with subsequent striking against other object, initial encounter; Y93.89 Activity, other specified; Y92.481 Parking lot as the place of occurrence of the external cause; Y99.8 Other external cause status; Y90.7 Blood alcohol level of 200-239 mg/100 ml

== ENCOUNTER 2021-05-31 07:49 | Emergency (ER) | payer OTHER ==
[~2021-05-31] VITALS: Ht 160 cm; Wt 52.2 kg
[~2021-05-31 07:49] MED LIST changes: +PROZAC20 M1 PO
[2021-05-31] MEDS ORDERED: OMEPRAZOLE 20 M20 M1 PO (08:04)
[2021-05-31] MEDS ORDERED: PROAIR HFA8.5 GM INH (08:05)
[2021-05-31 08:37] LABS: INFLUENZA A ANTIGEN Negative (Negative); INFLUENZA B ANTIGEN Negative (Negative)
[2021-05-31] MEDS ORDERED: AUGMENTIN 875-1 EACH PO (08:41)
[2021-05-31] MEDS ORDERED: VENTOLIN HFA 1818 GM INH (08:41)
[2021-05-31] MEDS ORDERED: TESSALON PERLE100 M1 PO (08:49)
[2021-05-31 08:53] VITALS: BP 112/76
== END 2021-05-31 08:55 | disposition home or self-care (01) ==
LOC: M.ERS 07:49
PROVIDERS: Emergency Medicine Emergency Medical Services
DX: J18.9 Pneumonia, unspecified organism (principal); Z20.822 Contact with and (suspected) exposure to COVID-19; I48.91 Unspecified atrial fibrillation; F32.9 Major depressive disorder, single episode, unspecified; F41.9 Anxiety disorder, unspecified; Z95.0 Presence of cardiac pacemaker; Z79.899 Other long term (current) drug therapy; Z88.8 Allergy status to other drugs, medicaments and biological substances